=== PATIENT | female | born 1990 | race Caucasian/White ===

== ENCOUNTER 2017-10-22 21:12 | Emergency (ER) | payer BC, SELFPAY ==
[2017-10-22 21:13] VITALS: BP 155/90; PULSE 97; RESP 16; TEMP 36.3; O2SAT 99; BMI 18.7
--- NOTE | 2017-10-22 21:55 | ED.VISSUMM ---
- ER Visit Summary Date of Service: 10/22/17 Chief Complaint: Jaw dislocation History of Present Illness: The patient is a 27 F presenting for evaluation due to jaw dislocation. 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 She has had this multiple times, and has required reduction. Patient's jaw has been out of place over the course of the last 45 minutes. Physical Examination: Patient is seated in the room with her jaw and a open position with inability to close her mouth secondary to pain and dislocation. Test Results: None indicated Emergency Department Course and Treatment: Patient presented secondary to a mandibular dislocation. Patient was laid supine, and I stood at the head of the bed. Thumbs were placed on her molars, and downward pressure was placed on the molars and upward traction was put at the center of the mandible. Patient's jaw was successfully reduced. Patient was discharged with outpatient follow-up. Disposition: Discharge Impression: 1. Mandible dislocation 2. Closed reduction by ED physician This note was generated with [employer] dictation software. It may contain incorrect words, spelling, and punctuation that were not noted in review of the chart prior to signing ED Disposition - Plan for ED Patient: Disposition: Home or Assisted Living Chief Complaint: Other, Pain/Inj Diagnosis: Dislocated mandible Instructions: ED Dislocation Mandible Referrals: [facility],Out of [Primary Care Provider] - As Needed
--- NOTE | 2017-10-22 21:58 | ED.DCSUM_ITS ---
- ER Visit Summary Date of Service: 10/22/17 Chief Complaint: Jaw dislocation History of Present Illness: The patient is a 27 F presenting for evaluation due to jaw dislocation. 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 She has had this multiple times, and has required reduction. Patient 's jaw has been out of place over the course of the last 45 minutes. Physical Examination: Patient is seated in the room with her jaw and a open position with inability to close her mouth secondary to pain and dislocation. Test Results: None indicated Emergency Department Course and Treatment: Patient presented secondary to a mandibular dislocation. Patient was laid supine, and I stood at the head of the bed. Thumbs were placed on her molars, and downward pressure was placed on the molars and upward traction was put at the center of the mandible. Patient' s jaw was successfully reduced. Patient was discharged with outpatient follow- up. Disposition: Discharge Impression: 1. Mandible dislocation 2. Closed reduction by ED physician This note was generated with [employer] dictation software. It may contain incorrect words, spelling, and punctuation that were not noted in review of the chart prior to signing ED Disposition - Plan for ED Patient: Disposition: Home or Assisted Living Chief Complaint: Other, Pain/Inj Diagnosis: Dislocated mandible Instructions: ED Dislocation Mandible Referrals: [facility],Out of [Primary Care Provider] - As Needed
[2017-10-22 22:04] VITALS: BP 142/90; PULSE 82; RESP 16; O2SAT 98
== END 2017-10-22 22:04 | disposition home or self-care (01) ==
PROVIDERS: Emergency Provider Emergency Medicine
DX: S03.00XA Dislocation of jaw, unspecified side, initial encounter (principal); X58.XXXA Exposure to other specified factors, initial encounter; Y93.89 Activity, other specified; Y92.9 Unspecified place or not applicable
CPT/HCPCS: 21480; 99282